=== PATIENT | female | born 1995 | race Caucasian/White ===

== ENCOUNTER 2016-10-06 10:27 | Emergency (ER) | payer OTHER ==
--- NOTE | ~2016-10-06 | ER ---
PATIENT'S NAME: COLLIN WRIGHT [facility] AGE: 21 Y [address] ROOM: [place] [address] LOCATION: [facility] ADMIT DATE: 10/06/2016 ER/Outpatient Report DISCHARGE DATE: 10/06/2016 FAMILY PHYSICIAN: Elmira Benjamin MD ATTENDING PHYSICIAN: Ken Zavaleta Admission date and time documented on the medical record. I saw the patient at 1035 hours. CHIEF COMPLAINT: Cough, shortness of breath, numbness, and tingling in her extremities. HISTORY OF PRESENT ILLNESS: This patient is a 21-year-old female, who presents with shortness of breath, trouble breathing, tightness in her throat and chest, congestion, numbness and tingling in her extremities, all this started around 0830 hours this morning. She has been sick for about 3 or 4 days. She is hyperventilating when she came in with a respiratory rate about 34. She had pulse rate about 108. Afebrile. No headache; eyes ears, nose, throat, neck, or spine pain. Just feels congested. No abdominal pain, nausea, vomiting, or diarrhea. No real chest pain. Just tightness. Extremities are numb and tingly. She is ambulatory. A little bit lightheaded and imbalanced to some extent. HOME MEDICATIONS: control pill. ALLERGIES: CODEINE AND IMITREX. SOCIAL HISTORY: Nonsmoker, nondrinker. PAST MEDICAL HISTORY: Headaches, scoliosis. PAST SURGICAL HISTORY: None. REVIEW OF SYSTEMS: All systems reviewed by me and are negative with the exception of those discussed in the history of present illness. PHYSICAL EXAMINATION: VITAL SIGNS: Temperature 98.5, pulse 108 and regular, respirations 34, blood pressure 136/71, O2 saturation on room air is 100%. PATIENT'S NAME: COLLIN WRIGHT [facility] AGE: 21 Y [address] ROOM: [place] [address] LOCATION: [facility] ADMIT DATE: 10/06/2016 ER/Outpatient Report DISCHARGE DATE: 10/06/2016 FAMILY PHYSICIAN: Elmira Benjamin MD ATTENDING PHYSICIAN: Ken Zavaleta HEAD: Normocephalic. EYES: Clear. EARS: Clear TMs bilaterally. NOSE: Mildly congested. THROAT: Clear. Mucous membranes moist. NECK: No nuchal rigidity. No findings of adenopathy. LUNGS: Clear. Good air flow. No rales, rhonchi, or wheezes. Coarse cough. HEART: Regular. Pulses are palpable. ABDOMEN: Soft, nontender. Good bowel tones. EXTREMITIES: Intact. NEUROVASCULAR: Intact. SKIN: Clear. LABORATORY DATA AND X-RAYS: Chest x-ray showed no acute infiltrate or changes. We will review x-ray with radiologist. Venous pH was 7.41, CRP was 3.74. White count was 11,400, 78 segs, 12 lymphs, 7 monos, 3 eos, hemoglobin is 13.3, hematocrit 39.5, platelet count is 277,000. IMPRESSION: 1. Tracheobronchitis. 2. Hyperventilation. PLAN: The patient is dismissed home. Observation. Activity as tolerated. Fluids and diet as tolerated. Continue home medications. Z-Jae, take as directed. Phenergan expectorant plain cough medication 1 teaspoon every 4 hours as needed for cough. Mucinex D 600 mg 2 orally 2 times a day #40. Follow up with personal physician as needed. No work until . Discussion ensued with the patient regarding my findings and recommendations, she understands. MD GORDO RUIZ/modl /[id number] d: 10/06/162001 t: 10/17/161810, OUTPATIENT REPORT
[2016-10-06 11:14] LABS: BASOPHIL % 0.4 %; EOSINOPHIL # 0.3 K/uL (0.0-0.5); EOSINOPHIL % 2.5 %; HEMATOCRIT 39.5 % (33.0-46.0); HEMOGLOBIN 13.3 g/dL (11.0-15.0); IMMATURE GRANULOCYTE % 0.4 %; LYMPHOCYTE # 1.4 K/uL (0.8-4.0); LYMPHOCYTE % 12.1 %; MCH 29.7 pg (27.0-34.0); MCHC 33.7 gm/dL (32.0-36.5); MCV 88.2 fl (83.0-98.0); MONOCYTE # 0.8 K/uL (0.0-1.0); MONOCYTE % 6.8 %; MPV 11.4 fl (9.4-12.4); NEUTROPHIL # (ANC) 8.9 K/uL (1.8-7.8); NEUTROPHIL % 77.8 %; NRBC % 0 /100WBC (0-0.00); PLATELET COUNT 277 K/uL (150-450); RBC 4.48 M/uL (3.50-5.00); RDW-CV 12.8 % (11.9-14.6); WBC 11.4 K/uL (4.0-11.0)
[2016-10-06 11:33] LABS: BICARBONATE 25.4 mmol/L (18.0-23.0); PCO2 40 mmHg (35-45)
[2016-10-06 11:34] LABS: PO2 35 mmHg (80-90)
== END 2016-10-06 11:55 | disposition disaster alternative care site (69) ==
LOC: GMED 10:27
PROVIDERS: Emergency Medicine
DX: J40 Bronchitis, not specified as acute or chronic (principal); R06.4 Hyperventilation; M41.9 Scoliosis, unspecified; Z88.5 Allergy status to narcotic agent; Z88.8 Allergy status to other drugs, medicaments and biological substances; Z79.899 Other long term (current) drug therapy
CPT/HCPCS: J1885; J2060